=== PATIENT | female | born 1980 | race Caucasian/White ===

== ENCOUNTER 2021-02-13 18:59 | Emergency (ER) | payer MEDICAID ==
[~2021-02-13] VITALS: Ht 162.6 cm; Wt 85.0 kg
[2021-02-13] MEDS ORDERED: MORPHINE SULFATE 4 MG/ML CPJ (NOT FOR IM USE) IV STA (19:28)
[2021-02-13 20:17] LABS: BASOPHILS % 0.6 % (0.0-2.0); EOSINOPHILS % 2.3 % (0.0-5.0); HEMOGLOBIN. 13.4 g/dL (12.0-16.0); LYMPHOCYTES % 33.9 % (20.0-50.0); MEAN CORPUSCULAR HEMOGLOBIN 30.8 pg (28.0-32.0); MEAN CORPUSCULAR VOLUME 91.8 fL (81.0-99.0); MEAN PLATELET VOLUME 7.9 fl (7.4-10.4); MONOCYTES % 6.4 % (2.0-8.0); NEUTROPHILS % 56.8 % (40.0-76.0); PLATELET 267 x1000/uL (130-400); RED BLOOD CELL COUNT 4.35 mill/uL (4.2-5.4); RED CELL DISTRIBUTION WIDTH 13.2 % (11.6-14.6)
[2021-02-13 20:18] LABS: CLARITY URINE CLEAR (CLEAR); COLOR URINE YELLOW (YELLOW); KETONES URINE NEGATIVE (NEGATIVE); LEUKOCYTE ESTERASE URINE NEGATIVE (NEGATIVE); NITRITE URINE NEGATIVE (NEGATIVE); OCCULT BLOOD URINE 1+ (NEGATIVE); PROTEIN URINE NEGATIVE (NEGATIVE); SPECIFIC GRAVITY URINE 1.019 (1.005-1.030)
[2021-02-13 20:26] LABS: CHLORIDE 108 mEq/L (98-107); PROTHROMBIN TIME 10.5 sec (9.6-11.0)
[2021-02-13 20:29] LABS: HCG SCREEN NEGATIVE
[2021-02-13] MEDS ORDERED: ONDA4TAB5 PO (22:53)
[2021-02-13] MEDS ORDERED: TOPUD PO (22:55)
[2021-02-13 23:21] VITALS: BP 112/72
== END 2021-02-13 23:24 | disposition home or self-care (01) ==
LOC: ER 18:59
DX: R10.9 Unspecified abdominal pain (principal); J45.909 Unspecified asthma, uncomplicated; Z88.6 Allergy status to analgesic agent; Z88.8 Allergy status to other drugs, medicaments and biological substances; Z90.710 Acquired absence of both cervix and uterus
CPT/HCPCS: 36415; 74176; 80053; 81003; 83690; 84703; 85025; 85610; 96374; 99284; J2270; Z7610

== ENCOUNTER 2023-12-15 13:42 | Emergency (ER) | payer MEDICAID ==
[~2023-12-15] VITALS: Ht 162.6 cm; Wt 76.0 kg
[~2023-12-15 13:42] MED LIST: ONDA4TAB5 PO; TOPUD PO
[2023-12-15 13:45] VITALS: PULSE 100; RESP 16
[2023-12-15 13:51] VITALS: BP 110/80; TEMP 98.4; O2SAT 99
== END 2023-12-15 14:14 | disposition left against medical advice (07) ==
LOC: ER 13:42
DX: S80.861A Insect bite (nonvenomous), right lower leg, initial encounter (principal); Z53.21 Procedure and treatment not carried out due to patient leaving prior to being seen by health care provider; W57.XXXA Bitten or stung by nonvenomous insect and other nonvenomous arthropods, initial encounter; Y93.89 Activity, other specified; Y92.89 Other specified places as the place of occurrence of the external cause; Y99.8 Other external cause status
CPT/HCPCS: 99281